=== PATIENT | female | born 1990 | race Caucasian/White ===

== ENCOUNTER 2020-03-19 15:15 | Outpatient (REF) | payer BC, SELFPAY ==
[2020-03-24 13:47] LABS: Metanephrine, Free 74 pg/mL (<=57); Normetanephrines, Free 167 pg/mL (<=148); Total Metanephrine, Free 241 pg/mL (<=205)
== END 2020-03-19 15:16 | disposition home or self-care (01) ==
LOC: HO.LAB 15:15
PROVIDERS: PCP Nurse Practitioner Family; Visit Provider Internal Medicine Cardiovascular Disease
DX: R00.0 Tachycardia, unspecified (principal); R00.2 Palpitations; R55 Syncope and collapse
CPT/HCPCS: 83835; 93005

== ENCOUNTER 2020-03-26 13:56 | Outpatient (REF) | payer BC, SELFPAY | END 2020-03-26 13:57 | disposition home or self-care (01) | LOC: HO.LAB 13:56 | PROVIDERS: PCP Nurse Practitioner Family; Visit Provider Internal Medicine Cardiovascular Disease | DX: Z13.89 Encounter for screening for other disorder (principal) ==

== ENCOUNTER 2020-03-28 13:46 | Outpatient (REF) | payer BC, SELFPAY ==
[2020-04-02 21:24] LABS: Metanephrine, Free 24U 200 mcg/24 h (36-190); Normetanephrine, Free 24U 247 mcg/24 h (35-482); Total Metanephrine, Free 24U 447 mcg/24 h (115-695); Total Volume 24U 2900 mL
== END 2020-03-28 13:47 | disposition home or self-care (01) ==
LOC: HO.LNP 13:46
PROVIDERS: Visit Provider Internal Medicine Cardiovascular Disease
DX: R00.0 Tachycardia, unspecified (principal); R00.2 Palpitations
CPT/HCPCS: 83835

== ENCOUNTER 2020-04-10 13:00 | Outpatient (REF) | payer BC, SELFPAY ==
[2020-04-10 15:32] LABS: Free T4 (Free Thyroxine) 0.98 ng/dL (0.71-1.85); Thyroid Stimulating Hormone 1.44 uIU/mL (0.32-4.0)
[2020-04-17 22:27] LABS: Chromogranin A 153 ng/mL (25-140)
== END 2020-04-10 13:01 | disposition home or self-care (01) ==
LOC: HO.LAB 13:00
PROVIDERS: PCP Nurse Practitioner Family; Visit Provider Internal Medicine Endocrinology, Diabetes & Metabolism
DX: R79.89 Other specified abnormal findings of blood chemistry (principal)
CPT/HCPCS: 84439; 84443; 86316

== ENCOUNTER → 2020-04-24 10:31 | Outpatient (REF) | payer BC, SELFPAY ==
--- NOTE | 2020-04-24 10:35 | CA_ITS ---
Transthoracic Echocardiogram Patient (Last, First, Middle): Aleksandra Rincon Marie Gender: Female Date of : 1990 Age: 29 Procedure Date: 04/24/2020 Procedure Type: Transthoracic Echocardiogram Location: OP Height: 165.1 cm Weight: 51.26 kg BSA: 1.55 m2 Heart Rate: bpm BP: 116 / 56 mmHg Taper Machine: MARGIE Referring MD: Humberto Guerrero MD Symptoms: R00.2 - Palpitations Study Quality: Good ECG Rhythm: Sinus Conclusions: - The left ventricular systolic function is normal. The visually estimated ejection fraction is between 60-65%. - No obvious valvular pathology seen on this study. Findings Left Ventricle Normal left ventricular cavity size. There is normal left ventricular wall thickness. The left ventricular systolic function is normal. The visually estimated ejection fraction is between 60-65%. There is no evidence of regional wall motion abnormalities. Diastolic function is normal for age. Right Ventricle Normal right ventricular cavity size and systolic function. Atria The left atrium is normal in size. The right atrium is normal in size. Aortic Valve There is a normal trileaflet aortic valve. There is no aortic valve stenosis. There is no aortic valve regurgitation. Mitral Valve The mitral valve appears normal. There is trace mitral valve regurgitation. There is no mitral valve stenosis. Pulmonic Valve The pulmonic valve was not well visualized. Tricuspid Valve Normal tricuspid valve structure. There is trace tricuspid valve regurgitation. The pulmonary artery systolic pressure is normal. Great Vessels The aortic annulus, sinuses of valsalva, and asc aorta are normal in size. Venous The inferior vena cava is normal in size and collapses greater than 50% with inspiration. Pericardium/Pleural There is no evidence of pericardial effusion. Prior Study Comparison No significant change compared to prior study dated: 04/03/2014. Recommendations, Care & Conclusions No obvious valvular pathology seen on this study. Measurements 2D Linear Measurements IVSd: 0.75 0.6-0.9/0.6-1.0 cm LVIDd: 4.26 3.9-5.3/4.2-5.9 cm LVIDd Index: 2.75 2.4-3.2/2.2-3.1 cm/m2 LVIDs: 2.82 2.0-3.6 cm LVPWd: 0.78 0.7-1.1 cm Ao Root: 2.60 2.1-3.5 cm LA Diam: 3.00 2.7-3.8/3.0-4.0 cm LAIDs Index: 1.94 1.5-2.3 cm/m2 LV Mass: 122.10 67-162/88-224 g LV Mass Index: 78.77 43-95/49-115 g/m2 LVOT Diam: 2.00 3.0+(-)1.3 cm Mitral Valve MV Pk E: 0.87 MV PK A: 0.66 MV Decel Time: 176.00 E/A: 1.30 E'Lateral: 18.70 E'Medial: 14.50 E/E' Med: 6.00 E/E' Lat: 4.70 PHT: 52.00 MVA PHT: 4.23 Decel [place]: 4.96 Aortic Valve AoV Pk Dylon: 1.62 AoV Mn Dylon: 1.11 AoV VTI: 0.32 AoV Pk Grad: 10.00 Aov Mn Grad: 6.00 SAI Cont.VTI: 2.66 LVOT LVOT Pk Dylon: 1.28 LVOT Mn Dylon: 0.81 LVOT VTI: 0.27 LVOT Pk Grad: 7.00 LVOT Mn Grad: 3.00 LVOT Diam: 2.00 LVOT Area: 3.14 Diastolic Function MV Pk E: 0.87 MV Pk A: 0.66 E/A: 1.30 E'Medial: 14.50 E/E' Med: 6.00 E' Laterial: 18.70 E/E' Lat: 4.70 Tricuspid Valve TR Pk Dylon: 2.19 TR Pk Grad: 19.00 RA Press: 3.00 RVSP: 22.00 Great Vessels Aorta Ao Root-2D: 2.60 2.0-3.7 cm Ao Asc: 2.70 2.1-3.4 cm Pulmonary Valve PV Pk Dylon: 1.07 Peak PV Grad: 5.00 Updated in Other Vendor System with Status of Final Kel Mcnair MD electronically signed on 04/24/2020 5:03:29 PM with status of Final
--- NOTE | 2020-04-24 10:35 | ECG_ITS ---
Hook-up date: 2020-04-24 11:16:00 Duration: 28:13:00 Test Indications: R00.2 - Palpitations Medications: [id number] QRS complexes 3 Ventricular ectopics which represent <1 % of total QRS comp. 3 Supraventricular ectopics which represent <1 % of total QRS comp. * Paced QRS complexs which represent % of total QRS comp. VENTRICULAR ECTOPY 3 Isolated 0 Bigeminal Cycles 0 Couplets 0 Runs 0 Beats in Runs * Beats LONGEST at * BPM at :: -- * Beats FASTEST at * BPM at :: -- SUPRAVENTRICULAR ECTOPY 3 Isolated 0 Couplets 0 Runs 0 Beats in Runs * Beats LONGEST at * BPM at :: -- * Beats FASTEST at * BPM at :: -- HEART RATES 47 MIN at 01:01:33 2020-04-25 83 AVG 141 MAX at 10:37:06 2020-04-25 LONGEST RR 1.4240 secs at 01:01:26 2020-04-25 S-T LEVELS Channel 1 - 128 mm at 11:16:00 2020-04-24 - 128 mm at 11:16:00 2020-04-24 Channel 2 - 128 mm at 11:16:00 2020-04-24 - 128 mm at 11:16:00 2020-04-24 Channel 3 - 128 mm at 03:03:51 -- - 128 mm at 03:03:51 Underlying rhythm is sinus; Average ventricular rate 83/min; range 47-141/min; No significant ectopy, tachy or maricruz arrhythmias; Racing heart, nausea, chest pain in diary associated with sinus rhythm. Referred By: Humberto Guerrero Overread By: NILAY CHOWDHURY
== END ==
LOC: HO.CARD 10:31
PROVIDERS: Visit Provider Internal Medicine Cardiovascular Disease
DX: R00.0 Tachycardia, unspecified (principal); R00.2 Palpitations; R55 Syncope and collapse
CPT/HCPCS: 93225; 93226; 93306

== ENCOUNTER → 2020-05-07 15:02 | Outpatient (BNVA) | payer BC, SELFPAY | PROVIDERS: PCP Nurse Practitioner Family; Visit Provider Internal Medicine Cardiovascular Disease | DX: Z76.89 Persons encountering health services in other specified circumstances (principal) ==

== ENCOUNTER 2020-06-10 13:15 | Outpatient (REF) | payer BC, SELFPAY ==
[2020-06-10 14:49] LABS: Total Volume 24 Hour Urine 3150 mL
[2020-06-10 15:34] LABS: Creatinine, 24Hr Urine 1.1 G/Day (1.0-2.0); Creatinine, mg/dL 36.33
[2020-06-13 08:06] LABS: Metanephrine, Free 37 pg/mL (<=57); Normetanephrines, Free 118 pg/mL (<=148); Total Metanephrine, Free 155 pg/mL (<=205)
[2020-06-13 12:53] LABS: Metanephrine, Free 24U 205 mcg/24 h (36-190); Normetanephrine, Free 24U 293 mcg/24 h (35-482); Total Metanephrine, Free 24U 498 mcg/24 h (115-695); Total Volume 24U 3150 mL
[2020-06-13 16:27] LABS: CATF, 24 Ur Volume 3150 mL; CATF-24Ur Creatinine 1.19 g/24 h (0.50-2.15); Catecholamines,Tot. (E+NE) 24U 45 mcg/24 h (26-121); Dopamine, 24 Ur 328 mcg/24 h (52-480); Epinephrine, 24 Ur 10 mcg/24 h (2-24); Norepinephrine, 24 Ur 35 mcg/24 h (15-100)
[2020-06-13 23:07] LABS: Creatinine, 24U 1.22 g/24 h (0.50-2.15); Total Volume 3150 mL
[2020-06-20 13:03] LABS: Catecholamine Frac, Total 290 pg/mL
== END 2020-06-10 13:16 | disposition home or self-care (01) ==
LOC: HO.LAB 13:15
PROVIDERS: Visit Provider Internal Medicine Endocrinology, Diabetes & Metabolism
DX: R79.89 Other specified abnormal findings of blood chemistry (principal)
CPT/HCPCS: 36415; 82384; 82570; 83835; 84585

== ENCOUNTER 2020-06-28 18:40 | Outpatient (REF) | payer BC, SELFPAY ==
--- NOTE | ~2020-06-28 | MR_ITS ---
EXAMINATION: MR ABDOMEN WITHOUT AND WITH CONTRAST CLINICAL INFORMATION: Other specified abnormal findings of blood chemistry COMPARISON: Ultrasound 03/31/2018 TECHNIQUE: MR abdomen was performed without and with use of 5 mL intravenous Gadavist gadolinium contrast. Postcontrast images are performed in multiphase dynamic sequences. Imaging was performed in 3 planes. Unfortunately, all of the sequences, particularly the postcontrast images, were significantly degraded by patient motion and suboptimal breath-holding. FINDINGS: LUNG BASES: The visualized lung bases are unremarkable. LIVER, GALLBLADDER, AND BILIARY TREE: The liver is normal in size, smooth in contour, and normal in signal. No focal hepatic lesion or biliary ductal dilatation is present. The gallbladder is unremarkable with no evidence of gallbladder wall thickening, or obvious pericholecystic inflammatory changes. PANCREAS: No pancreatic mass or peripancreatic inflammatory changes SPLEEN: Normal size. No focal splenic lesion seen. ADRENAL GLANDS: No adrenal mass. KIDNEYS AND URETERS: The kidneys are normal in size, shape, and enhance symmetrically. No hydronephrosis. No perinephric stranding. GASTROINTESTINAL TRACT: No bowel obstruction. No ascites or fluid collection. ABDOMINAL WALL: No significant hernia is appreciated. LYMPH NODES: No retroperitoneal lymphadenopathy or mass. VASCULAR: Normal caliber abdominal aorta. The IVC enhances normally. OSSEOUS STRUCTURES: Marrow signal normal. MR/MR abdomen wo/w con IMPRESSION: The study is significantly limited by motion. No adrenal mass. No retroperitoneal lymphadenopathy or mass.
== END 2020-06-28 18:41 | disposition home or self-care (01) ==
LOC: HO.MRI 18:40
PROVIDERS: Visit Provider Internal Medicine Endocrinology, Diabetes & Metabolism
DX: R79.89 Other specified abnormal findings of blood chemistry (principal)
CPT/HCPCS: 74183; A9585

== ENCOUNTER → 2020-07-17 11:08 | Outpatient (BNVA) | payer BC, SELFPAY | PROVIDERS: PCP Nurse Practitioner Family; Visit Provider Internal Medicine Endocrinology, Diabetes & Metabolism ==

== ENCOUNTER 2022-01-27 14:46 | Outpatient (REF) | payer BC, SELFPAY ==
[2022-01-27 16:34] LABS: Hematocrit 39.2 % (37.0-47.0); Hemoglobin 13.2 g/dl (12.0-16.0); Mean Corpuscular HGB Conc 33.7 g/dl (31.0-35.0); Mean Corpuscular Hemoglobin 32.2 pg (27.0-33.0); Mean Corpuscular Volume 95.6 fL (80.0-98.0); Mean Platelet Volume 9.5 fL (9.4-12.3); Platelet Count 340 X10*3/uL (160-400); Red Cell Distribution Width 11.9 % (11.0-16.0); White Blood Count 10.3 X10*3/uL (4.8-10.8)
[2022-01-27 16:44] LABS: Alanine Aminotransferase 13 U/L (0-31); Albumin Level 4.4 g/dL (3.5-5.0); Alkaline Phosphatase 59 U/L (39-117); Anion Gap 14 (12-20); Aspartate Amino Transferase 14 U/L (5-31); Bilirubin Total 0.3 mg/dL (0.0-1.0); Blood Urea Nitrogen 11 mg/dL (9-16); Carbon Dioxide 22 mmol/L (22-29); Chloride 106 mmol/L (96-108); Estimated Glomerular Filt Rate > 60; Glucose Random 129 mg/dL (60-115); Potassium 3.7 mmol/L (3.3-5.1); Sodium 138 mmol/L (135-145); Total Protein 7.3 g/dL (6.5-8.0)
== END 2022-01-27 14:47 | disposition home or self-care (01) ==
LOC: HO.HMGCLDS 14:46
PROVIDERS: Visit Provider Emergency Medicine
DX: R10.9 Unspecified abdominal pain (principal)
CPT/HCPCS: 36415; 80053; 85027

== ENCOUNTER 2022-06-08 13:59 | Emergency (ER) | payer BC, SELFPAY | END 2022-06-08 18:57 | disposition left against medical advice (07) | LOC: HO.ED 18:11 | PROVIDERS: Emergency Provider Emergency Medicine; PCP Nurse Practitioner Family | DX: R53.81 Other malaise (principal) ==

== ENCOUNTER 2022-06-16 10:21 | Emergency (ER) | payer BC, SELFPAY ==
--- NOTE | ~2022-06-16 | CT_ITS ---
EXAMINATION: CT ABDOMEN AND PELVIS WITHOUT CONTRAST CLINICAL INFORMATION: Upper abdominal pain COMPARISON: MRI abdomen dated 06/28/2020 TECHNIQUE: Multidetector volumetric imaging was performed from the superior aspect of the liver through the pubic symphysis. Sagittal and coronal reformatted images were obtained on the technologist's workstation. This CT examination was performed using dose optimization techniques as appropriate, variously including the following: *Automated exposure control *Adjustment of mA and/or kV according to patient size (this includes techniques or standardized protocols for targeted exams where dose is matched to indication/reason for exam; i.e. extremities or head) *Use of iterative reconstruction technique DLP: 339 mGy-cm FINDINGS: LUNG BASES: The visualized lung bases are unremarkable. LIVER, GALLBLADDER, AND BILIARY TREE: The liver is normal in size, shape, and attenuation. No focal hepatic lesion or biliary ductal dilatation is present. The gallbladder is unremarkable with no evidence of radiopaque gallstones, gallbladder wall thickening, or obvious pericholecystic inflammatory changes. PANCREAS: Unremarkable. SPLEEN: Unremarkable. ADRENAL GLANDS: Unremarkable. KIDNEYS AND URETERS: The kidneys are normal in size, shape, and attenuation. No hydronephrosis, hydroureter, or calculi seen. No perinephric stranding. BLADDER: Unremarkable. GASTROINTESTINAL TRACT: Surgical clips adjacent to the gastric cardia. There is mucosal redundancy in the gastric cardia, likely surgical. The small and large bowel are unremarkable. The appendix is unremarkable. ABDOMINAL WALL: No significant hernia is appreciated. LYMPH NODES: Normal. VASCULAR: Unremarkable. PELVIC VISCERA: Unremarkable. OSSEOUS STRUCTURES: No acute or suspicious osseous abnormalities. CT/CT abdomen pelvis wo IV con IMPRESSION: * No acute findings within the abdomen or pelvis to explain the patient's symptomatology. * Postsurgical changes at the gastric cardia as described, possibly Shanti fundoplication.
[2022-06-16 10:23] VITALS: BP 146/99; PULSE 110; RESP 18; TEMP 36.3; O2SAT 100; BMI 20.5
--- NOTE | 2022-06-16 10:28 | ECG_ITS ---
Test Reason : EPIGASTRIC PAIN Blood Pressure : / mmHG Vent. Rate : 111 BPM Atrial Rate : 111 BPM P-R Int : 124 ms QRS Dur : 070 ms QT Int : 320 ms P-R-T Axes : 088 091 037 degrees QTc Int : 435 ms Sinus tachycardia Rightward axis Nonspecific ST and T wave abnormality Abnormal ECG When compared to the previous EKG of 05 sep 2019, Nonspecific ST and T wave abnormality slightly more prominent Referred By: Generic ED Physician Electronically Signed By:NILAY CHOWDHURY
[2022-06-16 10:51] LABS: MANUAL DIFF FLAG NO
[2022-06-16 10:54] LABS: Basophils Percent Auto 0.4 % (0-2); Eosinophils Absolute Auto 0.1 X10*3/uL (0.0-0.4); Eosinophils Percent Auto 0.5 % (0-4); Hematocrit 40.9 % (37.0-47.0); Hemoglobin 13.8 g/dl (12.0-16.0); Imm Gran Abs Auto 0.09 X10*3/uL (0.00-0.03); Imm Gran Pct Auto 0.9 % (0.0-0.4); Lymphocytes Percent Auto 20.1 % (20-40); Mean Corpuscular HGB Conc 33.7 g/dl (31.0-35.0); Mean Corpuscular Hemoglobin 30.9 pg (27.0-33.0); Mean Corpuscular Volume 91.5 fL (80.0-98.0); Mean Platelet Volume 9.2 fL (9.4-12.3); Monocytes Absolute Auto 0.6 X10*3/uL (0.1-1.2); Monocytes Percent Auto 6.4 % (2-11); Neutrophils Absolute Auto 7.2 x10*3/uL (2.0-8.3); Neutrophils Percent Auto 71.7 % (45-73); Platelet Count 385 X10*3/uL (160-400); Red Blood Count 4.47 X10*6/uL (4.20-5.50); Red Cell Distribution Width 12.2 % (11.0-16.0)
[2022-06-16 10:58] LABS: Appearance Urine Clear; Color Urine Yellow; Glucose Urine UA Negative (Negative); Leukocyte Esterase Urine Negative (Negative); Nitrite Urine Negative (Negative); Specific Gravity - Urine <= 1.005 (1.005-1.025); UMIC TRIGGER UACC YES; Urine Blood Small (1+) (Negative); Urine Ketones Negative (Negative); Urine Protein Negative (Neg-Trace)
[2022-06-16 11:01] LABS: UPreg QC Valid YES; Urine Pregnancy NEGATIVE (NEGATIVE)
[2022-06-16 11:07] LABS: Alanine Aminotransferase 13 U/L (0-31); Albumin Level 4.6 g/dL (3.5-5.0); Alkaline Phosphatase 55 U/L (39-117); Anion Gap 14 (12-20); Aspartate Amino Transferase 13 U/L (5-31); Bilirubin Direct 0.2 mg/dL (0.0-0.5); Blood Urea Nitrogen 6 mg/dL (9-16); Calcium 9.9 mg/dL (8.4-10.2); Carbon Dioxide 24 mmol/L (22-29); Chloride 105 mmol/L (96-108); Creatinine Clr Calc Pharmacy 93.2; Estimated Glomerular Filt Rate > 60; Glucose Random 97 mg/dL (60-115); Lipase 29 U/L (8-78); Potassium 3.5 mmol/L (3.3-5.1); Sodium 139 mmol/L (135-145); Total Protein 7.7 g/dL (6.5-8.0)
[2022-06-16 11:08] LABS: COVID-19 Test Negative (Negative); IDNOW Serial# BCCEAD1C
[2022-06-16 11:12] LABS: Bacteria Urine None Seen (None Seen); Hyaline Casts Urine 0-2 /LPF (0-2); RBC Urine 0-2 /HPF (0-2); Squamous Epithelial Cell Urine 0-2 /HPF (0-2); WBC Urine 0-5 /HPF (0-5)
[2022-06-16 13:04] VITALS: BP 123/80; PULSE 79; RESP 16; TEMP 36.4; O2SAT 100
--- NOTE | 2022-06-16 13:30 | ED.ABDPAIN ---
HPI - Abdominal Pain General Chief Complaint: Abdominal Pain Stated Complaint: Chest discomfort/Nausea/Abd pain Time Seen by Provider: 06/16/22 13:14 Source: patient and family (Mother) Mode of arrival: ambulatory Limitations: no limitations History of Present Illness HPI narrative: 31-year-old female came in for evaluation of upper abdominal pain and lower chest for the past couple months, patient feels discomfort in the upper abdomen and lower chest for few months now feels nauseous and decrease appetite patient declined losing weight, normal bowel movement with no blood, no dysuria no urinary frequency, sexually active with 1 partner with no issue of STD. Does not think she is . Patient had a history of galileo fundoplication. Related Data Home Medications Medication Instructions Recorded Confirmed budesonide-formoterol HFA 160 2 puff inhalation BID 03/19/20 07/17/20 mcg-4.5 mcg/actuation aerosol inhaler (Symbicort) levalbuterol tartrate 45 2 puff inhalation Q4-6H PRN 03/19/20 07/17/20 mcg/actuation aerosol inhaler (Xopenex HFA) lorazepam 0.5 mg tablet 0.5 mg PO DAILY PRN anxiety 03/19/20 07/17/20 Previous Rx's Medication Instructions Recorded cyclobenzaprine 10 mg tablet 10 mg PO TID PRN muscle spasm #10 01/27/22 tabs Allergies Allergy/AdvReac Type Severity Reaction Status Date / Time fluticasone [Advair Diskus] Allergy Unknown increased Verified 06/16/22 10:23 heart rate montelukast [Singulair] Allergy Unknown increased Verified 06/16/22 10:23 heart rate, increased BP moxifloxacin [Avelox] Allergy Unknown increased Verified 06/16/22 10:23 heart rate salmeterol [Advair Diskus] Allergy Unknown increased Verified 06/16/22 10:23 heart rate Sulfa (Sulfonamide Allergy Unknown rash Verified 06/16/22 10:23 Antibiotics) sulfamethoxazole Allergy Unknown RASH Verified 06/16/22 10:23 [From Bactrim] trimethoprim [From Bactrim] Allergy Unknown RASH Verified 06/16/22 10:23 From Avelox Allergy Unknown HEARTRACING Uncoded 06/16/22 10:23 Review of Systems Review of Systems All other systems are reviewed and are negative Constitutional: Reports as per HPI and Reports no additional constitutional complaints Eyes: Reports as per HPI and Reports no additional eye complaints Reports system reviewed and no additional complaints, except as documented Cardiovascular: Reports as per HPI and Reports no additional cardiovascular complaints Respiratory: Reports as per HPI and Reports no additional respiratory complaints Gastrointestinal: Reports as per HPI and Reports no additional gastrointestinal complaints Genitourinary: Reports no additional female genitourinary complaints Musculoskeletal: Reports no additional musculoskeletal complaints Skin/Breast: Reports system reviewed and no additional complaints, except as docu Psychiatric: Reports no additional psychiatric complaints Endocrine: Reports no additional endocrine complaints Hematologic/Lymphatic: Reports no additional hematologic/lymphatic complaints Allergic/Immunologic: Reports no additional allergic/immunologic complaints Reports system reviewed and no additional complaints, except as documented and Reports Abnormal speech present [facility] Past Medical History Medical History Abdominal pain Anxiety Asthma Elevated plasma metanephrines Vasovagal syncope Surgical History Hx of dilation and curettage Status post Shanti fundoplication Family History Family History Father No problems noted. Mother HTN (hypertension) Social History Social History Alcohol intake: never Smoked in Last 30 Days: No Use of substances other than those prescribed or required for medical reasons: No Advance Directives: No Advance Directives Information Provided: Yes Patient : No Physical Exam ED Vital Signs: Vital Signs - 24 hr 06/16/22 10:23 06/16/22 13:04 Temperature 97.4 F 97.5 F Pulse Rate 110 H 79 Respiratory Rate 18 16 Blood Pressure 146/99 H 123/80 Pulse Oximetry 100 100 Oxygen Delivery Method Room Air Room Air BMI result Body Mass Index 20.5 Vital signs have been reviewed as appeared to be correct. Blood pressure normal. Heart rate normal. Respiration rate normal. Temperature normal. Oxygen saturation normal. Appearance: Anxious, Alert. Oriented X3. No acute distress. Head: Normal external exam. Normocephalic. Atraumatic. No Buckner signs noted. No raccoon eyes noted Eyes: PERRLA. EOMI. Conjunctiva and sclera normal. Eyelids normal. ENT: TM's Normal. Pharynx normal. Uvula midline. Moist mucous membranes. No trismus noted. No drooling noted. No muffled voice noted. Neck: Normal inspection. Neck supple. FROM. No adenopathy. Thyroid Normal. No meningeal signs. No neck mass noted. CVS: Normal heart rate and rhythm. Heart sound normal. No murmurs noted. Pulses normal throughout. Respiratory: No respiratory distress. Painless inspiration. Breath sounds normal. No wheezes/rales/rhonchi noted. Chest nontender. No accessory muscle usage noted or decreased air movement noted. Abdomen: Soft, mild epigastric tenderness with no rebound tenderness or guarding. Bowel sounds normal in all 4 quadrants. No distention noted. No organomegaly noted. No visible injury noted. Back: No CVA tenderness. Full range of motion noted. Skin: Skin warm and dry. Normal skin color. Normal skin turgor. No rashes/lesions/lacerations noted. Extremities: No lower extremity edema. Extremities exhibit normal range of motion. Extremities nontender. Neuro: Oriented X 3. Cranial nerve exam: II-XII are grossly intact No motor deficit. No sensory deficit. Reflexes normal. Course Course Course Narrative: 31-year-old female with longstanding history of GI issues all S/P Galileo fundoplication came in with a few months of upper abdominal pain which is more consistent with gastritis, patient had workup in the emergency department mostly negative except for mild left bandemia shift. 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 Medical Decision Making Differential Diagnosis Differential Diagnoses: The differential diagnosis associated with the presentation includes (Gastritis, post surgical intra-abdominal complication, appendicitis, cholecystitis, diverticulitis, kidney stone.) Lab Data MDM Lab Attestation statement: I reviewed the patient's lab results. 06/16/22 10:44 06/16/22 10:44 Labs: Lab Results 06/16/22 06/16/22 06/16/22 Range/Units 10:44 10:44 10:44 WBC 10.0 (4.8-10.8) X10*3/uL RBC 4.47 (4.20-5.50) X10*6/uL Hgb 13.8 (12.0-16.0) g/dl Hct 40.9 (37.0-47.0) % MCV 91.5 (80.0-98.0) fL MCH 30.9 (27.0-33.0) pg MCHC 33.7 (31.0-35.0) g/dl RDW 12.2 (11.0-16.0) % Plt Count 385 (160-400) X10*3/uL MPV 9.2 L (9.4-12.3) fL Immature Gran % (Auto) 0.9 H (0.0-0.4) % Neut % (Auto) 71.7 (45-73) % Lymph % (Auto) 20.1 (20-40) % Cannon % (Auto) 6.4 (2-11) % Eos % (Auto) 0.5 (0-4) % Baso % (Auto) 0.4 (0-2) % Lymph # (Auto) 2.0 (1.2-4.9) X10*3/uL Cannon # (Auto) 0.6 (0.1-1.2) X10*3/uL Eos # (Auto) 0.1 (0.0-0.4) X10*3/uL Baso # (Auto) 0.0 (0.0-0.2) X10*3/uL Abs Immat Gran (auto) 0.09 H (0.00-0.03) X10*3/uL Absolute Neuts (auto) 7.2 (2.0-8.3) x10*3/uL Absolute Nucleated RBC 0.000 (0.0-0.012) X10*3/uL Nucleated RBC % (auto) 0.0 (0.0-0.2) /100WBC Sodium 139 (135-145) mmol/L Potassium 3.5 (3.3-5.1) mmol/L Chloride 105 (96-108) mmol/L Carbon Dioxide 24 (22-29) mmol/L Anion Gap 14 (12-20) BUN 6 L (9-16) mg/dL Creatinine 0.71 (0.5-1.4) mg/dL Estim Creat Clear Calc 93.2 Estimated GFR > 60 Random Glucose 97 (60-115) mg/dL Calcium 9.9 D (8.4-10.2) mg/dL Total Bilirubin 1.0 (0.0-1.0) mg/dL Direct Bilirubin 0.2 (0.0-0.5) mg/dL AST 13 (5-31) U/L ALT 13 (0-31) U/L Alkaline Phosphatase 55 (39-117) U/L Total Protein 7.7 (6.5-8.0) g/dL Albumin 4.6 (3.5-5.0) g/dL Lipase 29 (8-78) U/L Urine Color Urine Appearance Urine pH (5.0-9.0) Ur Specific [place] (1.005-1.025) Urine Protein (Neg-Trace) mg/dL Urine Glucose (UA) (Negative) mg/dL Urine Ketones (Negative) mg/dL Urine Blood (Negative) Urine Nitrite (Negative) Ur Leukocyte Esterase (Negative) Urine RBC (0-2) /HPF Urine WBC (0-5) /HPF Ur Squamous Epith Cells (0-2) /HPF Urine Bacteria (None Seen) Hyaline Casts (0-2) /LPF Urine Test (NEGATIVE) COVID-19 (VANITA) Negative (Negative) COVID-19 Clin Com See Note 06/16/22 06/16/22 Range/Units 10:44 10:44 WBC (4.8-10.8) X10*3/uL RBC (4.20-5.50) X10*6/uL Hgb (12.0-16.0) g/dl Hct (37.0-47.0) % MCV (80.0-98.0) fL MCH (27.0-33.0) pg MCHC (31.0-35.0) g/dl RDW (11.0-16.0) % Plt Count (160-400) X10*3/uL MPV (9.4-12.3) fL Immature Gran % (Auto) (0.0-0.4) % Neut % (Auto) (45-73) % Lymph % (Auto) (20-40) % Cannon % (Auto) (2-11) % Eos % (Auto) (0-4) % Baso % (Auto) (0-2) % Lymph # (Auto) (1.2-4.9) X10*3/uL Cannon # (Auto) (0.1-1.2) X10*3/uL Eos # (Auto) (0.0-0.4) X10*3/uL Baso # (Auto) (0.0-0.2) X10*3/uL Abs Immat Gran (auto) (0.00-0.03) X10*3/uL Absolute Neuts (auto) (2.0-8.3) x10*3/uL Absolute Nucleated RBC (0.0-0.012) X10*3/uL Nucleated RBC % (auto) (0.0-0.2) /100WBC Sodium (135-145) mmol/L Potassium (3.3-5.1) mmol/L Chloride (96-108) mmol/L Carbon Dioxide (22-29) mmol/L Anion Gap (12-20) BUN (9-16) mg/dL Creatinine (0.5-1.4) mg/dL Estim Creat Clear Calc Estimated GFR Random Glucose (60-115) mg/dL Calcium (8.4-10.2) mg/dL Total Bilirubin (0.0-1.0) mg/dL Direct Bilirubin (0.0-0.5) mg/dL AST (5-31) U/L ALT (0-31) U/L Alkaline Phosphatase (39-117) U/L Total Protein (6.5-8.0) g/dL Albumin (3.5-5.0) g/dL Lipase (8-78) U/L Urine Color Yellow Urine Appearance Clear Urine pH 7.0 (5.0-9.0) Ur Specific [place] <= 1.005 (1.005-1.025) Urine Protein Negative (Neg-Trace) mg/dL Urine Glucose (UA) Negative (Negative) mg/dL Urine Ketones Negative (Negative) mg/dL Urine Blood Small (1+) H (Negative) Urine Nitrite Negative (Negative) Ur Leukocyte Esterase Negative (Negative) Urine RBC 0-2 (0-2) /HPF Urine WBC 0-5 (0-5) /HPF Ur Squamous Epith Cells 0-2 (0-2) /HPF Urine Bacteria None Seen (None Seen) Hyaline Casts 0-2 (0-2) /LPF Urine Test NEGATIVE (NEGATIVE) COVID-19 (VANITA) (Negative) COVID-19 Clin Com Independent Interpretation I performed an independent interpretation of an: CT Scan (Abdomen and pelvis: No acute intracranial pathology.) Radiology Impression Discussion of test interpretation with radiology: I have reviewed the radiologist's reading. (* No acute findings within the abdomen or pelvis to explain the patient's symptomatology. * Postsurgical changes at the gastric cardia as described, possibly Shanti fundoplication. ) Medications Administered Discontinued Medications Generic Name Dose Route Start Last Admin Trade Name Freq PRN Reason Stop Dose Admin Al Hydroxide/Mg Hydroxide 30 ml 06/16/22 13:26 06/16/22 14:37 Magnesium Hydrox/Alum Hydrox 30 Ml Oral.Susp PO 06/16/22 13:27 30 ml ONCE ONE Administration Famotidine 20 mg 06/16/22 13:26 06/16/22 14:37 Famotidine/Pf 20 Mg/2 Ml Vial IVPUSH 06/16/22 13:27 20 mg ONCE ONE Administration Sodium Chloride 1,000 mls @ 999 mls/hr 06/16/22 14:27 06/16/22 14:36 Ns IV 06/16/22 15:27 999 mls/hr .Q1H1M ONE Administration Ondansetron HCl 4 mg 06/16/22 13:26 06/16/22 14:37 Ondansetron Hcl 4 Mg/2 Ml Vial IVPUSH 06/16/22 13:27 4 mg ONCE ONE Administration Discharge Plan Discharge Clinical Impression: Abdominal pain Patient Disposition: Home, Self-Care Instructions: Abdominal Pain (ED) Prescriptions: No Action cyclobenzaprine 10 mg tablet 10 mg PO TID PRN (Reason: muscle spasm) Qty: 10 0RF lorazepam 0.5 mg tablet 0.5 mg PO DAILY PRN (Reason: anxiety) budesonide-formoterol [Symbicort] 160-4.5 mcg/actuation HFA aerosol inhaler 2 puff inhalation BID levalbuterol tartrate [Xopenex HFA] 45 mcg/actuation HFA aerosol inhaler 2 puff inhalation Q4-6H PRN Referrals: Tara Moralez PA-C [Primary Care Provider] -
--- NOTE | 2022-06-16 13:32 | PC.NURSE ---
pt AOx3, reports nausea and vomiting x3 months. Concerned about previous galileo fundiplication surgery. conveyor monitor intact.
[2022-06-16] MEDS: 0.9 % Sodium Chloride 1,000 ML 999 ML IV (14:36)
[2022-06-16] MEDS: ondansetron HCL 4 MG/2 ML VIAL IVPUSH (14:37)
[2022-06-16] MEDS: Famotidine/PF 20 MG/2 ML VIAL IVPUSH (14:37)
[2022-06-16] MEDS: Magnesium Hydrox/Alum Hydrox 30 ML ORAL.SUSP PO (14:37)
--- NOTE | 2022-06-16 14:43 | PC.NURSE ---
pt back from CT scan. Medicated per order.
== END 2022-06-16 16:01 | disposition home or self-care (01) ==
PROVIDERS: Emergency Provider Emergency Medicine; PCP Internal Medicine Cardiovascular Disease
DX: R10.10 Upper abdominal pain, unspecified (principal); Z20.822 Contact with and (suspected) exposure to COVID-19
CPT/HCPCS: 74176; 80053; 81001; 81025; 82248; 83690; 85025; 87635; 93005; 96361; 96374; 96375; 99284; 99285; J2405

== ENCOUNTER 2023-12-18 11:27 | Emergency (ER) | payer BC, SELFPAY ==
[2023-12-18] VITALS (7 sets, daily range): BP systolic 110–142; BP diastolic 73–102; PULSE 76–107; RESP 16–18; TEMP 36.4–36.9; O2SAT 100; BMI 21.8
--- NOTE | ~2023-12-18 | XR_ITS ---
EXAMINATION: XR CLAVICLE, RIGHT CLINICAL INFORMATION: Fall. COMPARISON: None available. TECHNIQUE: Two views of the right clavicle. FINDINGS: No evidence of acute fracture or dislocation. Normal appearance of the acromioclavicular joint. No significant soft tissue abnormality. XR/XR clavicle RT IMPRESSION: No significant abnormality. Electronically signed by: Marci Bullock MD 12/18/2023 02:43 PM EDT
--- NOTE | ~2023-12-18 | XR_ITS ---
EXAMINATION: XR CERVICAL SPINE CLINICAL INFORMATION: Fall. COMPARISON: None available. TECHNIQUE: 3 views of the cervical spine were obtained. FINDINGS: No evidence of acute compression deformity or subluxation. Alignment of the atlantoaxial and atlantooccipital articulation is maintained. Normal appearance of the posterior elements. No prevertebral soft tissue thickening. Included portions of the lung apices are clear. XR/XR cervical spine 3V IMPRESSION: No significant radiographic abnormality. Electronically signed by: Marci Bullock MD 12/18/2023 02:50 PM EDT
--- NOTE | 2023-12-18 11:29 | ECG_ITS ---
Test Reason : SYNCOPE Blood Pressure : / mmHG Vent. Rate : 080 BPM Atrial Rate : 080 BPM P-R Int : 128 ms QRS Dur : 070 ms QT Int : 358 ms P-R-T Axes : 024 079 051 degrees QTc Int : 412 ms Normal sinus rhythm Normal ECG When compared with ECG of 16-JUN-2022 10:38, Heart rate has decreased Referred By: Generic ED Physician Electronically Signed By:NIKKI HERRING
--- NOTE | 2023-12-18 11:29 | ED.SYNCOPE ---
HPI - Syncope General Chief Complaint: Syncope Stated Complaint: syncope, sore from fall Time Seen by Provider: 12/18/23 12:18 Source: patient and old records reviewed Mode of arrival: ambulatory Limitations: no limitations History of Present Illness ED Provider: CALEB PEÑA narrative: 33 yo female with PMH of asthma, anxiety, prior vasovagal syncope here with c/o feeling off after packing she definitely over did it had zhao vu all day but no other symptoms had an episode where she felt she was going to pass out but did not. Woke up at 330am to use bathroom felt funny and woke up on the floor. No preceding CP/SOB, not on OCPs. She woke up and felt dizzy and confused. She has mild neck pain and R clavicle pain. present only on the ground for a minute or so no seen seizure activity or tongue biting/incontinence though he did not see the fall. He came in today as this was slightly different she had the zhao vu all day, she has not passed out recently and she was tired the next day. MD complaint: loss of consciousness and collapsed Onset (ago): day(s) (early Wednesday) Duration of episode: 1 -: minutes(s) Description of event: post-event confusion Prodromal symptoms: lightheaded Witnessed: No Context: at rest (was sitting on the toilet) Injuries sustained associated with event: neck and other (R clavicle) Current symptoms: other (fatigue) History: previous syncopal episode Treatments prior to arrival: none Related Data Home Medications ?Medication ?Instructions ?Recorded ?Confirmed budesonide-formoterol HFA 160 2 puff inhalation BID 03/19/20 07/17/20 mcg-4.5 mcg/actuation aerosol inhaler (Symbicort) levalbuterol tartrate 45 2 puff inhalation Q4-6H PRN 03/19/20 07/17/20 mcg/actuation aerosol inhaler (Xopenex HFA) lorazepam 0.5 mg tablet 0.5 mg PO DAILY PRN anxiety 03/19/20 07/17/20 Previous Rx's ?Medication ?Instructions ?Recorded cyclobenzaprine 10 mg tablet 10 mg PO TID PRN muscle spasm #10 01/27/22 tabs Allergies Allergy/AdvReac Type Severity Reaction Status Date / Time fluticasone [Advair Diskus] Allergy Unknown increased Verified 12/18/23 11:40 heart rate montelukast [Singulair] Allergy Unknown increased Verified 12/18/23 11:40 heart rate, increased BP moxifloxacin [Avelox] Allergy Unknown increased Verified 12/18/23 11:40 heart rate salmeterol [Advair Diskus] Allergy Unknown increased Verified 12/18/23 11:40 heart rate Sulfa (Sulfonamide Allergy Unknown rash Verified 12/18/23 11:40 Antibiotics) sulfamethoxazole Allergy Unknown RASH Verified 12/18/23 11:40 [From Bactrim] trimethoprim [From Bactrim] Allergy Unknown RASH Verified 12/18/23 11:40 From Avelox Allergy Unknown HEARTRACING Uncoded 06/16/22 10:23 Review of Systems Review of Systems: Constitutional : No Fever, No Chills, No Fatigue ENT/Mouth : No sore throat, No Rhinorrhea Eyes: No Eye Pain, No Swelling, No Redness Cardiovascular : No Chest Pain, No SOB, No Dyspnea on Exertion Respiratory : No Cough, No Sputum Gastrointestinal : No Nausea, No Vomiting, No Diarrhea, No abdominal Pain Genitourinary : No Dysuria, No Urinary Frequency, No Hematuria, Musculoskeletal : No joint pain, No Myalgias, No Joint Swelling Skin : No Skin Lesions, No rash Neuro : No Weakness, No Numbness, No Dizziness, no Headache, pos syncope Psych : No Anxiety/Panic, No Depression All other systems reviewed and are negative PMFSH Past Medical History Attestation statement: The following information was validated with the patient. Source: old records reviewed Medical History Anxiety Asthma Abdominal pain Elevated plasma metanephrines Vasovagal syncope Surgical History Hx of dilation and curettage Status post Shanti fundoplication Family History Family History Father No problems noted. Mother HTN (hypertension) Social History Social History Alcohol intake: never Patient Tobacco Use Status: Never used Tobacco Use of substances other than those prescribed or required for medical reasons: No Advance Directives: No Advance Directives Information Provided: No Do you have a plan to hurt others: No Plan Patient : No Physical Exam Vital Signs: Vital Signs: Last Vital Signs Temp 97.6 F 12/18/23 12:00 Pulse 107 H 12/18/23 12:29 Resp 16 12/18/23 12:00 BP 142/102 H 12/18/23 12:29 Pulse Ox 100 12/18/23 12:00 O2 Del Method Room Air 12/18/23 12:00 BMI result Body Mass Index 21.8 Appearance: Alert. Oriented X3. No acute distress. Eyes: Pupils equal, round and reactive to light. ENT: Pharynx normal. L eyebrow area mild ttp Neck: mild cervical ttp no step offs CVS: Normal heart rate and rhythm. Pulses normal. R clavicle mild ttp no obv deformity Respiratory: No respiratory distress. Breath sounds normal. Abdomen: Soft and nontender. Skin: Skin warm and dry. Normal skin color. Normal skin turgor. Extremities: No lower extremity edema. No calf ttp Neuro: Oriented X 3. No motor deficit. No sensory deficit. Course Course Course Narrative: This is rapid medical exam. Deferred additional HPI, ROS, PE to primary provider. 33 yo female with history of vasovagal syncope, asthma, GERD had near syncopal episode evening, got up in the night and felt she had a syncopal episode, waking on the bathroom floor. Has some generalized discomfort. Will obtain EKG, labs, UA, ur preg, orthos VSS -A. Pascucci [employer] Medications Administered Discontinued Medications Generic Name Dose Route Start Last Admin Trade Name Kassi PRN Reason Stop Dose Admin Lactated Ringer's 1,000 mls @ 999 mls/hr 12/18/23 12:37 12/18/23 13:42 Lr IV 12/18/23 13:37 999 mls/hr .Q1H1M ONE Administration Ibuprofen 400 mg 12/18/23 13:51 12/18/23 14:06 Ibuprofen 400 Mg Tablet PO 12/18/23 13:52 400 mg ONCE ONE Administration Medical Decision Making Medical Decision Making MDM Narrative: 33 yo female with PMH of asthma, anxiety, prior vasovagal syncope here with c/o having zhao vu and overexerting herself on then Wednesday AM had syncopal event no prior seizures but was tired and confused afterwards would be first time event though she has no headaches and no neuro deficits to suggest mass. No fam hx of sudden cardiac , no risk factors for VTE and no CP/SOB. At this time EKG, ortho VS, IVF x 2L, xray of clavicle, cervical spine, discussed PCP follow up and seiure precautions just in case Differential Diagnosis Differential Diagnoses: The differential diagnosis associated with the presentation includes seizure vs syncope Admission/Observation Consideration of admission/observation: Escalation of care including admission/observation considered at baseline occurred 24 hours ago can follow up with PCP Lab Data [facility] Lab Attestation statement: I reviewed the patient's lab results. 12/18/23 11:51 12/18/23 11:51 Labs: Lab Results 12/18/23 Range/Units 11:51 WBC 8.6 (4.8-10.8) X10*3/uL RBC 4.10 L (4.20-5.50) X10*6/uL Hgb 13.6 (12.0-16.0) g/dl Hct 40.7 (37.0-47.0) % MCV 99.3 H (80.0-98.0) fL MCH 33.2 H (27.0-33.0) pg MCHC 33.4 (31.0-35.0) g/dl RDW 11.9 (11.0-16.0) % Plt Count 342 (160-400) X10*3/uL MPV 9.3 L (9.4-12.3) fL Immature Gran % (Auto) 0.2 (0.0-0.4) % Neut % (Auto) 54.1 (45-73) % Lymph % (Auto) 31.7 (20-40) % [place] % (Auto) 6.8 (2-11) % Eos % (Auto) 6.4 H (0-4) % Baso % (Auto) 0.8 (0-2) % Lymph # (Auto) 2.7 (1.2-4.9) X10*3/uL [place] # (Auto) 0.6 (0.1-1.2) X10*3/uL Eos # (Auto) 0.6 H (0.0-0.4) X10*3/uL Baso # (Auto) 0.1 (0.0-0.2) X10*3/uL Abs Immat Gran (auto) 0.02 (0.00-0.03) X10*3/uL Absolute Neuts (auto) 4.6 (2.0-8.3) x10*3/uL Absolute Nucleated RBC 0.000 (0.0-0.012) X10*3/uL Nucleated RBC % (auto) 0.0 (0.0-0.2) /100WBC Sodium 140 (135-145) mmol/L Potassium 3.7 (3.3-5.1) mmol/L Chloride 107 (96-108) mmol/L Carbon Dioxide 23 (22-29) mmol/L Anion Gap 14 (12-20) BUN 9 (9-16) mg/dL Creatinine 0.97 (0.5-1.4) mg/dL Estim Creat Clear Calc 66.9 Estimated GFR > 60 Random Glucose 101 (60-115) mg/dL Calcium 9.3 D (8.4-10.2) mg/dL Total Bilirubin 0.6 (0.0-1.0) mg/dL Direct Bilirubin 0.2 (0.0-0.5) mg/dL AST 13 (5-31) U/L ALT 15 (0-31) U/L Alkaline Phosphatase 56 (39-117) U/L Troponin I High Sens < 2.7 (<3.5-17.0) ng/L Total Protein 7.5 (6.5-8.0) g/dL Albumin 4.4 (3.5-5.0) g/dL Urine Color Yellow Urine Appearance Clear Urine pH 7.0 (5.0-9.0) Ur Specific [place] 1.015 (1.005-1.025) Urine Protein Negative (Neg-Trace) mg/dL Urine Glucose (UA) Negative (Negative) mg/dL Urine Ketones Negative (Negative) mg/dL Urine Blood Trace H (Negative) Urine Nitrite Negative (Negative) Ur Leukocyte Esterase Negative (Negative) Urine RBC 6-10 H (0-2) /HPF Urine WBC 0-5 (0-5) /HPF Ur Squamous Epith Cells 0-2 (0-2) /HPF Urine Bacteria None Seen (None Seen) Hyaline Casts 0-2 (0-2) /LPF Urine Test NEGATIVE (NEGATIVE) Independent Interpretation I performed an independent interpretation of an: EKG and Plain X-Ray (no trauma) Interpretation: Rate: 80 Rhythm: NSR [place]: normal Normal P waves. Normal [place]. Normal QRS complex. ST T wave : no ASIA, inverted t wave V1 and V2 qTC: 412 prior studies: no sig change The study has been interpreted contemporaneously by me. . Radiology Impression Discussion of test interpretation with radiology: I have reviewed the radiologist's reading. Independent Historian Clinical information obtained from an independent historian. History obtained from or confirmed by: Spouse External Record Review External record reviewed: Inpatient record Discharge Plan Discharge Clinical Impression: Syncope and collapse Patient Disposition: Home, Self-Care Instructions: Syncope (ED) Additional Instructions: labs, EKG, and vital signs reassuring no trauma on xray at this time given the symptoms before and after event unclear if this was syncope vs seizure - would ask primary care to get EEG do not drive if you feel off, do not swim alone, do not cook over and open flame return for any worsening symptoms or concerns. Prescriptions: No Action cyclobenzaprine 10 mg tablet 10 mg PO TID PRN (Reason: muscle spasm) Qty: 10 0RF lorazepam 0.5 mg tablet 0.5 mg PO DAILY PRN (Reason: anxiety) budesonide-formoterol [Symbicort] 160-4.5 mcg/actuation HFA aerosol inhaler 2 puff inhalation BID levalbuterol tartrate [Xopenex HFA] 45 mcg/actuation HFA aerosol inhaler 2 puff inhalation Q4-6H PRN Stand Alone Forms: Work/School Release Print Language: Gabonese
[2023-12-18 11:57] LABS: MANUAL DIFF FLAG NO
[2023-12-18 11:59] LABS: Basophils Absolute Auto 0.1 X10*3/uL (0.0-0.2); Basophils Percent Auto 0.8 % (0-2); Eosinophils Absolute Auto 0.6 X10*3/uL (0.0-0.4); Eosinophils Percent Auto 6.4 % (0-4); Hematocrit 40.7 % (37.0-47.0); Hemoglobin 13.6 g/dl (12.0-16.0); Imm Gran Abs Auto 0.02 X10*3/uL (0.00-0.03); Imm Gran Pct Auto 0.2 % (0.0-0.4); Lymphocytes Absolute Auto 2.7 X10*3/uL (1.2-4.9); Lymphocytes Percent Auto 31.7 % (20-40); Mean Corpuscular HGB Conc 33.4 g/dl (31.0-35.0); Mean Corpuscular Hemoglobin 33.2 pg (27.0-33.0); Mean Corpuscular Volume 99.3 fL (80.0-98.0); Mean Platelet Volume 9.3 fL (9.4-12.3); Monocytes Absolute Auto 0.6 X10*3/uL (0.1-1.2); Monocytes Percent Auto 6.8 % (2-11); Neutrophils Absolute Auto 4.6 x10*3/uL (2.0-8.3); Neutrophils Percent Auto 54.1 % (45-73); Platelet Count 342 X10*3/uL (160-400); Red Cell Distribution Width 11.9 % (11.0-16.0); White Blood Count 8.6 X10*3/uL (4.8-10.8)
[2023-12-18 12:02] LABS: Appearance Urine Clear; Color Urine Yellow; Glucose Urine UA Negative (Negative); Leukocyte Esterase Urine Negative (Negative); Nitrite Urine Negative (Negative); Specific Gravity - Urine 1.015 (1.005-1.025); UMIC TRIGGER UACC YES; Urine Blood Trace (Negative); Urine Ketones Negative (Negative); Urine Protein Negative (Neg-Trace)
[2023-12-18 12:03] LABS: UPreg QC Valid YES; Urine Pregnancy NEGATIVE (NEGATIVE)
[2023-12-18 12:04] LABS: Bacteria Urine None Seen (None Seen); Hyaline Casts Urine 0-2 /LPF (0-2); Squamous Epithelial Cell Urine 0-2 /HPF (0-2); WBC Urine 0-5 /HPF (0-5)
[2023-12-18 12:15] LABS: Alanine Aminotransferase 15 U/L (0-31); Albumin Level 4.4 g/dL (3.5-5.0); Alkaline Phosphatase 56 U/L (39-117); Anion Gap 14 (12-20); Aspartate Amino Transferase 13 U/L (5-31); Bilirubin Direct 0.2 mg/dL (0.0-0.5); Bilirubin Total 0.6 mg/dL (0.0-1.0); Blood Urea Nitrogen 9 mg/dL (9-16); Calcium 9.3 mg/dL (8.4-10.2); Carbon Dioxide 23 mmol/L (22-29); Chloride 107 mmol/L (96-108); Creatinine Clr Calc Pharmacy 66.9; Estimated Glomerular Filt Rate > 60; Glucose Random 101 mg/dL (60-115); Potassium 3.7 mmol/L (3.3-5.1); Sodium 140 mmol/L (135-145); Total Protein 7.5 g/dL (6.5-8.0)
[2023-12-18 12:26] LABS: Troponin-I High Sensitivity < 2.7 ng/L (<3.5-17.0)
[2023-12-18] MEDS: Lactated Ringers 1,000 ML 999 ML IV ×2 (13:42→14:00)
[2023-12-18] MEDS: Ibuprofen 400 MG TABLET PO (14:06)
== END 2023-12-18 16:00 | disposition home or self-care (01) ==
PROVIDERS: Nurse Practitioner Family; Emergency Provider Emergency Medicine; PCP Family Medicine
DX: R55 Syncope and collapse (principal)
CPT/HCPCS: 36415; 72040; 73000; 80048; 80076; 81001; 81003; 81025; 84484; 85025; 93005; 96360; 96361; 99284; 99285; J7120

== ENCOUNTER → 2024-02-25 15:05 | Outpatient (REF) | payer BC, SELFPAY ==
--- NOTE | 2024-02-25 15:09 | HM_ITS ---
* Total monitoring time 2 days. * Underlying rhythm is sinus with an average rate of 83/Min. * Rare supraventricular ectopy. * Rare ventricular ectopy. * No significant pauses or high-grade AV blocks. * No patient markers. * Diary entries of heart racing/pounding without specific times. MTDD
== END ==
LOC: HO.CARD 15:05
PROVIDERS: PCP Family Medicine; Visit Provider Family Medicine
DX: R55 Syncope and collapse (principal)
CPT/HCPCS: 93225

== ENCOUNTER → 2024-02-25 15:09 | Outpatient (BNV) | payer BC, SELFPAY | PROVIDERS: PCP Family Medicine; Visit Provider Internal Medicine | DX: I47.10 Supraventricular tachycardia, unspecified (principal) | CPT/HCPCS: 93227 ==